=== PATIENT | male | born 1985 | race Caucasian/White ===

== ENCOUNTER 2022-02-10 20:23 | Emergency (ER) | payer OTHER ==
[~2022-02-10] VITALS: Ht 177.8 cm; Wt 103.4 kg
--- NOTE | 2022-02-10 21:18 | PHYS DOC ---
Past History Past Surgical History: No Surgical History Alcohol Use: None Adult General Chief Complaint Chief Complaint: CHEST PAIN HPI HPI Patient is a 36-year-old male with a past medical history significant for GERD and hypertriglyceridemia/hypercholesterolemia who presents with a chief complaint of chest pain. States that he is not currently having it, but at home about an hour ago had an episode of about 30 minutes of 1 to 2 hours before coming into the ED, With centralized sternal discomfort/pain that he cannot quite describe with some radiation up into his chest bilaterally. States it was relatively constant, with no aggravating or alleviating factors. States he has had this going on about a year and has seen his primary care physician. States they have done everything Sholly of stress test and catheterization. States his dad did have several heart attacks in his upper 40s. Denies cigarette smoking, alcohol or drugs. Denies any dyspnea on exertion, orthopnea, PND or edema. Denies any recent traumas, travels, illnesses, fevers, abdominal pain, nausea, vomiting, diarrhea. Denies any numbness/weakness/tingling. Did not take any medications. Review of Systems Review of Systems Review of systems otherwise unremarkable except noted in HPI Allergies Allergies Allergies Coded Allergies Type Severity Reaction Last Updated Verified codeine Allergy Intermediate 02/10/22 Yes Physical Exam Physical Exam Constitutional: Well developed, well nourished, no acute distress, non-toxic appearance. [] HENT: Normocephalic, atraumatic, oropharynx moist, Eyes: conjunctiva normal, no discharge. [] Neck: Normal range of motion, no tenderness, supple, no stridor. [] Cardiovascular:Heart rate regular rhythm, no murmur [] Lungs & Thorax: Bilateral breath sounds clear to auscultation [] Abdomen: soft, no tenderness, no masses, no pulsatile masses. [] Skin: Warm, dry, no erythema, no rash. [] Back: No tenderness, no CVA tenderness. [] Extremities: No tenderness, no cyanosis, no clubbing, ROM intact, no edema. [] Neurologic: Alert and oriented X 3, normal motor function, normal sensory function, able to sit, stand and walk without issue no focal deficits noted. [] Psychologic: Affect normal, judgement normal, mood normal. [] Current Patient Data Vital Signs Vital Signs Date Time Temp Pulse Resp B/P (MAP) Pulse Ox O2 Delivery O2 Flow Rate FiO2 02/10/22 20:39 73 18 114/86 (95) 100 Room Air EKG EKG [] Radiology/Procedures Radiology/Procedures [] Heart Score C/O Chest Pain: Yes HEART Score for Chest Pain: HEART Score for Chest Pain Response (Comments) Value History Slighlty/Non-Suspicious 0 Age < 45 0 Risk Factors 1 or 2 Risk Factors 1 Troponin < Normal Limit 0 Total 1 Risk Factors: Risk Factors: DM, Current or recent (<one month) smoker, HTN, HLP, family history of CAD, obesity. Risk Scores: Risk Factors: DM, Current or recent (<one month) smoker, HTN, HLP, family history of CAD, obesity. Course & Med Decision Making Course & Med Decision Making Patient is a 36-year-old male who presents with a chief complaint of 1/2-hour episode of chest pain before coming into the ED that is now resolved Vital signs not concerning. Physical exam noted above. EKG with a rate of 69, QRS 92, QTc 422, incomplete right bundle branch block, no STEMI. Troponin normal. Discussed all findings with patient. Discussed differential diagnosis. Discussed symptom management at home including management of GERD. Advised to follow-up in the morning with primary care physician. Gave return precautions to the ED. Patient grateful, verbalized understanding and agreed with plan of discharge. [] Dragon Disclaimer Dragon Disclaimer This electronic medical record was generated, in whole or in part, using a voice recognition dictation system. Departure Departure: Impression: Primary Impression: Chest pain Disposition: HOME / SELF CARE / HOMELESS Condition: STABLE Referrals: RUFINA CORRAL MD (PCP) Patient Instructions: Chest Pain (Nonspecific), Diet for Gastroesophageal Reflux Disease, Adult, Gastroesophageal Reflux Disease, Adult Additional Instructions: Fever coming into the emergency department tonight allowing us to take care of you. Please read the attached information carefully to go over things we discussed. Please begin an omeprazole regimen, 1 tablet daily over the next couple of weeks and 2x3 times a day with meals. It is very important that you follow-up with your primary care physician in the morning to discuss your ED visit and discussed the need for stress test to be more sure that things that you are experiencing are less likely cardiac and possibly related to GERD. Please talk to them about the EGD which is a small camera that looks down your esophagus and into your stomach to evaluate for esophagitis/gastritis/peptic ulcer disease. Please adjust your diet as we discussed and any information given to you as this is very important if you do have GERD with symptoms to get it resolved. Please contact with new or concerning symptoms as discussed. LUCRETIA BEJARANO MD Feb 10, 2022 21:18
[2022-02-10] MEDS ORDERED: LIDO:MAALOX 1:1 20 ML SINGLE DOSE. PO ONE (21:30)
[2022-02-10 21:38] VITALS: BP 138/84
[2022-02-10 21:40] LABS: BASO # 0.1 x10^3/uL (0.0-0.2); BASO % 2 % (0-3); EOS # 0.2 x10^3/uL (0.0-0.7); EOS % 3 % (0-3); HEMATOCRIT 42.4 % (39.0-53.0); HEMOGLOBIN 14.3 g/dL (13.0-17.5); LYMPH # 3.1 x10^3/uL (1.0-4.8); LYMPH % 43 % (24-48); MEAN CORPUSCULAR HEMOGLOBIN 29 pg (25-35); MEAN CORPUSCULAR HGB CONC 34 g/dL (31-37); MEAN CORPUSCULAR VOLUME 87 fL (79-100); MONO # 0.5 x10^3/uL (0.0-1.1); MONO % 7 % (0-9); NEUT # 3.2 x10^3uL (1.8-7.7); NEUT % 45 % (31-73); PLATELET COUNT 246 x10^3/uL (140-400); RED BLOOD COUNT 4.89 x10^6/uL (4.30-5.70); RED CELL DISTRIBUTION WIDTH 13.3 % (11.5-14.5); WHITE BLOOD COUNT 7.2 x10^3/uL (4.0-11.0)
[2022-02-10 21:51] LABS: CALCIUM 8.8 mg/dL (8.5-10.1); CREATININE 1.1 mg/dL (0.7-1.3); GFR 76.2; POTASSIUM 4.4 mmol/L (3.5-5.1)
--- NOTE | 2022-02-10 22:17 | RAD ---
Exam: Chest one view INDICATION: Chest pain TECHNIQUE: Frontal view of the chest Comparisons: None FINDINGS: The cardiomediastinal silhouette and pulmonary vessels are within normal limits. The lung and pleural spaces are clear. IMPRESSION: No acute cardiopulmonary process. Electronically signed by: Alice Melgar MD (02/10/2022 10:14 PM) OLYA
--- NOTE | 2022-02-10 22:57 | EKG ---
[address] [address] Test Date: 2022-02-10 Test Time: 20:40:08 Pat Name: GUICHO FINE Department: Room: Gender: M [employer]: : [id number] Requested By: LUCRETIA BEJARANO Order Number: [id number] Reading MD: Measurements Intervals [place] Rate: 69 P: 0 [place]: 138 QRS: 29 QRSD: 92 T: 5 QT: 388 QTc: 422 Interpretive Statements SINUS RHYTHM INCOMPLETE RIGHT BUNDLE BRANCH BLOCK NO SPECIFIC ECG ABNORMALITIES RI6.01 No previous ECG available for comparison
== END 2022-02-10 22:19 | disposition home or self-care (01) ==
LOC: ER 20:23
DX: R07.89 Other chest pain (principal); K21.9 Gastro-esophageal reflux disease without esophagitis; Z88.5 Allergy status to narcotic agent
CPT/HCPCS: 36415; 71045; 80048; 83735; 84484; 85025; 93005; 99285